=== PATIENT | female | born 1990 | race Caucasian/White ===

== ENCOUNTER 2021-08-09 08:00 | Inpatient (IN) | payer MEDICAID ==
[~2021-08-09] VITALS: Ht 160 cm; Wt 148.3 kg
[2021-08-09] MEDS ORDERED: METHYLERGONOVINE MALEATE 0.2 MG/ML IM PRN (09:00)
[2021-08-09] MEDS ORDERED: MISOPROSTOL 100MCG TABLET VG SCH (09:00)
[2021-08-09] MEDS ORDERED: NALOXONE HCL 0.4 MG/ML 1ML VIAL IM PRN (09:00)
[2021-08-09] MEDS ORDERED: DEXT 5%/LR + PITOCIN 20UNITS/L 1,000 ML IV SCH (09:00)
[2021-08-09] MEDS ORDERED: CARBOPROST TROMETHAMINE 250 MCG/ML AMPUL IM PRN (09:00)
[2021-08-09] MEDS ORDERED: LACTATED RINGERS 1,000 ML IV SCH (09:00)
[2021-08-09 09:28] LABS: BASOPHILS % 0.2 % (0.0-2.0); HEMATOCRIT. 37.5 % (36.0-48.0); HEMOGLOBIN. 12.7 g/dL (12.0-16.0); LYMPHOCYTES % 19.2 % (20.0-50.0); MEAN CORPUSCULAR VOLUME 79.7 fL (81.0-99.0); MONOCYTES % 4.1 % (2.0-8.0); NEUTROPHILS % 74.5 % (40.0-76.0); PLATELET 150 x1000/uL (130-400); RED BLOOD CELL COUNT 4.71 mill/uL (4.2-5.4); RED CELL DISTRIBUTION WIDTH 15.6 % (11.6-14.6)
[2021-08-09 09:37] LABS: PARTIAL THROMBOPLASTIN TIME 30.9 sec (23.4-31.0); PROTHROMBIN TIME 10.9 sec (9.6-11.0)
[2021-08-09 09:45] LABS: *AMPHETAMINES SCREEN URINE NEGATIVE (NEGATIVE); *BARBITURATES SCREEN URINE NEGATIVE (NEGATIVE); CANNABINOID URINE SCREEN NEGATIVE (NEGATIVE); METHADONE URINE SCREEN NEGATIVE (NEGATIVE); OPIATES URINE SCREEN NEGATIVE (NEGATIVE); PHENCYCLIDINE URINE SCREEN NEGATIVE (NEGATIVE)
[2021-08-09 09:46] LABS: *BENZODIAZEPINES SCREEN URINE NEGATIVE (NEGATIVE); *COCAINE SCREEN URINE NEGATIVE (NEGATIVE)
[2021-08-09] MEDS ORDERED: CITRIC ACID/SODIUM CITRATE SOLN 30ML UDC PO NR (10:00)
[2021-08-09 10:02] LABS: CLARITY URINE CLEAR (CLEAR); COLOR URINE YELLOW (YELLOW); KETONES URINE 2+ (NEGATIVE); LEUKOCYTE ESTERASE URINE NEGATIVE (NEGATIVE); NITRITE URINE NEGATIVE (NEGATIVE); OCCULT BLOOD URINE NEGATIVE (NEGATIVE); PROTEIN URINE NEGATIVE (NEGATIVE); SPECIFIC GRAVITY URINE 1.013 (1.005-1.030); UROBILINOGEN URINE 0.2 E.U./dL (0.2-1.0)
[2021-08-09] MEDS ORDERED: EPHEDRINE SULFATE 50MG/ML VIAL ONE (10:18)
[2021-08-09] MEDS ORDERED: DEXAMETHASONE 4MG/ML 1ML VIAL ONE (10:18)
[2021-08-09] MEDS ORDERED: ONDANSETRON HCL 4MG/2ML INJ ONE (10:18)
[2021-08-09] MEDS ORDERED: OXYTOCIN 10 UNITS/ML 1ML ONE (10:18)
[2021-08-09] MEDS ORDERED: MORPHINE SULFATE/PF 1MG/ML 10ML AMP ONE (10:24)
[2021-08-09] MEDS ORDERED: CLINDAMYCIN 900 MG PREMIX 50 ML IV SCH (11:00)
[2021-08-09 11:28] LABS: HEPATITIS B SURFACE ANTIGEN NEGATIVE
[2021-08-09] MEDS ORDERED: KETAMINE HCL 50 MG/ML 10ML ONE (12:42)
[2021-08-09] MEDS ORDERED: FENTANYL CITRATE/PF 50MCG/ML 2ML VIAL ONE (12:46)
[2021-08-09] MEDS ORDERED: MIDAZOLAM HCL 2 MG/2 ML VIAL ONE (13:06)
[2021-08-09] MEDS ORDERED: NALOXONE HCL 0.4 MG/ML 1ML VIAL IV PRN (14:15)
[2021-08-09] MEDS ORDERED: BUTORPHANOL TARTRATE 2 MG/ML VIAL IV PRN (14:15)
[2021-08-09] MEDS ORDERED: DIPHENHYDRAMINE 50MG/ML VIAL IM PRN (14:15)
[2021-08-09] MEDS ORDERED: ONDANSETRON HCL 4MG/2ML INJ IM PRN (14:15)
[2021-08-09] MEDS ORDERED: DIPHENHYDRAMINE 25MG CAPSULE PO PRN (14:30)
[2021-08-09] MEDS ORDERED: ONDANSETRON HCL 4MG/2ML INJ IV PRN (14:30)
[2021-08-09] MEDS ORDERED: BISACODYL 10MG SUPP PR PRN (14:30)
[2021-08-09] MEDS ORDERED: LANOLIN OINT 7GM TUBE TOP PRN (14:30)
[2021-08-09] MEDS ORDERED: RHO(D) IMMUNE GLOBULIN 300 MCG/SYR IM PRN (14:30)
[2021-08-09] MEDS ORDERED: HEMORRHOIDAL SUPP PR PRN (14:30)
[2021-08-09] MEDS ORDERED: IBUPROFEN 400MG TABLET PO PRN (14:30)
[2021-08-09 15:30] VITALS: BP 103/48
[2021-08-09 16:00] VITALS: BP 100/50
[2021-08-09 16:30] VITALS: BP 105/50
[2021-08-09] MEDS ORDERED: HYDROMORPHONE HCL/PF 2MG/ML CPJ IV PRN (16:30)
[2021-08-09] MEDS: MAGNESIUM/ALUMINUM HYDROXIDE/SIMETHICONE 30ML UDC PO SCH (17:15)
[2021-08-09] MEDS: SIMETHICONE 80MG TABLET CHEW PO SCH (17:16)
[2021-08-09 17:40] LABS: BASOPHILS % 0.2 % (0.0-2.0); EOSINOPHILS % 0.1 % (0.0-5.0); HEMATOCRIT. 36.9 % (36.0-48.0); LYMPHOCYTES % 8.4 % (20.0-50.0); MEAN CORPUSCULAR HEMOGLOBIN 26.8 pg (28.0-32.0); MEAN CORPUSCULAR VOLUME 82.6 fL (81.0-99.0); MEAN PLATELET VOLUME 11.1 fl (7.4-10.4); NEUTROPHILS % 88.3 % (40.0-76.0); PLATELET 146 x1000/uL (130-400); RED BLOOD CELL COUNT 4.47 mill/uL (4.2-5.4); RED CELL DISTRIBUTION WIDTH 15.8 % (11.6-14.6)
[2021-08-09] MEDS: DEXT 5%/LR + PITOCIN 20UNITS/L 1,000 ML IV SCH (18:21)
[2021-08-09 20:00] VITALS: BP 113/58
[2021-08-09] MEDS ORDERED: DOCUSATE SODIUM 100MG CAPSULE PO SCH (21:00)
[2021-08-10 00:30] VITALS: BP 102/60
[2021-08-10] MEDS: DEXT 5%/LR + PITOCIN 20UNITS/L 1,000 ML IV SCH ×2 (03:09→11:27)
[2021-08-10 04:30] VITALS: BP 118/67
[2021-08-10] MEDS: IBUPROFEN 800MG TABLET PO PRN ×2 (04:31→13:08)
[2021-08-10 07:29] LABS: BASOPHILS % 0.3 % (0.0-2.0); EOSINOPHILS % 1.1 % (0.0-5.0); HEMATOCRIT. 37.4 % (36.0-48.0); HEMOGLOBIN. 12.3 g/dL (12.0-16.0); MEAN CORPUSCULAR VOLUME 82.2 fL (81.0-99.0); MEAN PLATELET VOLUME 10.5 fl (7.4-10.4); MONOCYTES % 5.7 % (2.0-8.0); NEUTROPHILS % 68.9 % (40.0-76.0); PLATELET 135 x1000/uL (130-400); RED BLOOD CELL COUNT 4.54 mill/uL (4.2-5.4); RED CELL DISTRIBUTION WIDTH 15.6 % (11.6-14.6)
[2021-08-10 07:30] VITALS: BP 110/48
[2021-08-10] MEDS: SIMETHICONE 80MG TABLET CHEW PO SCH ×4 (08:00→21:16)
[2021-08-10] MEDS: MAGNESIUM/ALUMINUM HYDROXIDE/SIMETHICONE 30ML UDC PO SCH ×3 (08:19→17:57)
[2021-08-10] MEDS: PRENATAL VIT/FE FUMARATE/FA TABLET PO SCH (08:19)
[2021-08-10] MEDS: ACETAMINOPHEN WITH CODEINE 300/30MG TABLET PO PRN ×2 (08:19→21:16)
[2021-08-10] MEDS: FERROUS SULFATE 325MG TABLET PO SCH ×3 (08:19→17:57)
[2021-08-10 13:10] VITALS: BP 123/74
[2021-08-10 15:05] VITALS: BP 120/67
[2021-08-10] MEDS ORDERED: HYDROMORPHONE HCL/PF 2MG/ML CPJ IM PRN (15:30)
[2021-08-10] MEDS ORDERED: ACETAMINOPHEN WITH CODEINE 300/30MG TABLET PO PRN (15:30)
[2021-08-10] MEDS ORDERED: NALOXONE HCL 0.4MG/ML VIAL IV PRN (15:45)
[2021-08-10 20:00] VITALS: BP 117/67
[2021-08-11] MEDS: ACETAMINOPHEN WITH CODEINE 300/30MG TABLET PO PRN (02:20)
[2021-08-11 04:00] VITALS: BP 121/74
[2021-08-11 07:35] VITALS: BP 124/74
[2021-08-11] MEDS ORDERED: LACTATED RINGERS 1,000 ML IV SCH (08:00)
[2021-08-11] MEDS: MAGNESIUM/ALUMINUM HYDROXIDE/SIMETHICONE 30ML UDC PO SCH (08:58)
[2021-08-11] MEDS: FERROUS SULFATE 325MG TABLET PO SCH (08:58)
[2021-08-11] MEDS: PRENATAL VIT/FE FUMARATE/FA TABLET PO SCH (08:58)
[2021-08-11] MEDS: SIMETHICONE 80MG TABLET CHEW PO SCH (08:58)
[2021-08-11] MEDS: IBUPROFEN 800MG TABLET PO PRN (08:59)
== END 2021-08-11 11:15 | disposition home or self-care (01) | DRG 539 ==
LOC: OR 08:00 → 8 EST LDRP 08:00 → OBSVTOIN 08:00 → EDSTATUS 10:00 → 8EST 15:47
PROVIDERS: ADMIT Obstetrics & Gynecology; ATTEND Obstetrics & Gynecology
PROC: 10D00Z1 Extraction of Products of Conception, Low, Open Approach (ICD-10-PCS; principal; 2021-08-09)
PROC: 0UB70ZZ Excision of Bilateral Fallopian Tubes, Open Approach (ICD-10-PCS; 2021-08-09)
DX: O34.211 Maternal care for low transverse scar from previous cesarean delivery (principal); Z20.822 Contact with and (suspected) exposure to COVID-19; Z30.2 Encounter for sterilization; Z37.0 Single live birth; Z3A.39 39 weeks gestation of pregnancy
CPT/HCPCS: 36415; 80305; 81003; 85025; 86592; 86703; 86762; 86850; 86900; 87340; 87426; 88302; 88307; 93005; 99281; J1100; J1170; J2250; J2274; J2405; J2590; J3010; J3490